=== PATIENT | female | born 1945 | race Caucasian/White ===

== ENCOUNTER → 2016-07-09 | Outpatient (CLI) | payer OTHER ==
[~2016-07-09] MED LIST: ALAVERT10 M1 PO; ASPIRIN81 MG PO; CALCIUM 500 W/V1 TAB PO; HYDROCHLOROTHIA25 MG PO; IBUPROFEN600 MG PO; INDOCIN50 MG PO; MOTRIN800 MG PO; OXYBUTYNIN5 MG PO; PRINIVIL10 MG PO; SYNTHROID,LEVO88 MCG PO; TENORMIN50 MG PO; ZOCOR20 MG PO
[2016-07-09 10:48] LABS: BASO % 0.2 % (0.0-1.0); EOS # 0.2 10*3/uL (0.0-0.4); EOS % 3.3 % (1.0-4.0); HEMATOCRIT 36.8 % (37.0-47.0); HEMOGLOBIN 12.8 g/dl (12.0-16.0); MEAN CORPUSCULAR HGB 31.3 pg (27.0-31.0); MEAN CORPUSCULAR HGB CONC 34.8 g/dl (33.0-37.0); MEAN PLATELET VOLUME 9.3 fl (9.6-12.3); MONO # 0.3 10*3/uL (0.1-1.0); MONO % 5.2 % (3.0-9.0); NEUT # 3.9 10*3/uL (2.3-7.9); NEUT % 73.1 % (47.0-73.0); PLATELET COUNT AUTOMATED 246 10*3/uL (130-400); RED BLOOD COUNT 4.09 10*6/uL (4.10-5.10); RED CELL DISTRI WIDTH 13.3 % (0-14.5); WHITE BLOOD COUNT 5.4 10*3/uL (4.8-10.8)
[2016-07-09 11:17] LABS: ALBUMIN 3.6 gm/dl (3.1-4.5); ALKALINE PHOSPHATASE 100 U/L (45-117); BILIRUBIN, DIRECT 0.1 mg/dL (0.0-0.2); BILIRUBIN, TOTAL 0.6 mg/dl (0.2-1.0); BUN 14 mg/dl (7-24); CARBON DIOXIDE 29 mmol/L (21-32); CHLORIDE 99 mmol/L (98-107); CHOLESTEROL 212 mg/dL (<200); EST GLOM FILT AFRICAN AMERICAN > 60 ml/min; GLUCOSE 91 mg/dL (65-99); HDL CHOLESTEROL 68 mg/dl (40-60); LDL CHOLESTEROL 120 mg/dL (9-159); PHOSPHOROUS 3.3 mg/dL (2.5-4.9); POTASSIUM 3.7 mmol/L (3.5-5.1); SGOT/AST 24 IU/L (3-35); SGPT/ALT 34 U/L (12-78); SODIUM 138 mmol/L (136-145); TOTAL PROTEIN 7.4 gm/dL (6.4-8.2); TRIGLYCERIDES 120 mg/dl (<150); VLDL CHOLESTEROL 24 mg/dL (6-40)
[2016-07-09 11:42] LABS: FOLIC ACID 20.88 ng/mL (>5.38)
== END | disposition home or self-care (01) ==
LOC: LAB 10:29
PROVIDERS: Internal Medicine
DX: I10 Essential (primary) hypertension (principal); E78.2 Mixed hyperlipidemia; J45.32 Mild persistent asthma with status asthmaticus; G47.33 Obstructive sleep apnea (adult) (pediatric)

== ENCOUNTER → 2017-02-19 | Outpatient (CLI) | payer OTHER ==
[2017-02-19 10:49] LABS: BASO % 0.4 % (0.0-1.0); EOS # 0.3 10*3/uL (0.0-0.4); EOS % 5.3 % (1.0-4.0); HEMATOCRIT 36.3 % (37.0-47.0); HEMOGLOBIN 12.1 g/dl (12.0-16.0); LYMPH # 1.1 10*3/uL (1.3-4.4); LYMPH % 22.6 % (27.0-41.0); MEAN CELL VOLUME 91.9 fl (81.0-99.0); MEAN CORPUSCULAR HGB 30.6 pg (27.0-31.0); MEAN CORPUSCULAR HGB CONC 33.3 g/dl (33.0-37.0); MEAN PLATELET VOLUME 9.8 fl (9.6-12.3); MONO # 0.3 10*3/uL (0.1-1.0); MONO % 5.9 % (3.0-9.0); NEUT # 3.2 10*3/uL (2.3-7.9); NEUT % 65.4 % (47.0-73.0); PLATELET COUNT AUTOMATED 222 10*3/uL (130-400); RED BLOOD COUNT 3.95 10*6/uL (4.10-5.10); RED CELL DISTRI WIDTH 13.1 % (0-14.5); WHITE BLOOD COUNT 4.9 10*3/uL (4.8-10.8)
[2017-02-19 11:06] LABS: ALBUMIN 3.6 gm/dl (3.1-4.5); ALKALINE PHOSPHATASE 100 U/L (45-117); BILIRUBIN, DIRECT 0.2 mg/dL (0.0-0.2); BUN 17 mg/dl (7-24); CHLORIDE 102 mmol/L (98-107); CHOLESTEROL 184 mg/dL (<200); CREATININE 0.91 mg/dL (0.55-1.02); HDL CHOLESTEROL 60 mg/dl (40-60); LDL CHOLESTEROL 101 mg/dL (9-159); POTASSIUM 3.7 mmol/L (3.5-5.1); SGOT/AST 21 IU/L (3-35); SGPT/ALT 22 U/L (12-78); SODIUM 139 mmol/L (136-145); THYROXINE (T4) TOTAL 9.3 ug/dl (4.8-13.9); TOTAL PROTEIN 7.5 gm/dL (6.4-8.2); TRIGLYCERIDES 115 mg/dl (<150); URIC ACID 5.7 mg/dL (2.6-6.0); VLDL CHOLESTEROL 23 mg/dL (6-40)
[2017-02-19 11:11] LABS: THYROID STIM HORMONE (HS) 0.937 uIU/ml (0.358-4.75)
== END | disposition home or self-care (01) ==
LOC: LAB 10:28
PROVIDERS: Internal Medicine
DX: I10 Essential (primary) hypertension (principal); M10.9 Gout, unspecified; E03.1 Congenital hypothyroidism without goiter

== ENCOUNTER 2017-03-19 20:22 | Emergency (ER) | payer OTHER ==
[~2017-03-19] VITALS: Ht 160 cm; Wt 77.1 kg
[2017-03-19] MEDS ORDERED: VOLTAREN100 GM T (22:38)
== END 2017-03-19 22:55 | disposition home or self-care (01) ==
LOC: ED 20:22
DX: M25.462 Effusion, left knee (principal); Z88.8 Allergy status to other drugs, medicaments and biological substances; Z79.899 Other long term (current) drug therapy; Z79.82 Long term (current) use of aspirin

== ENCOUNTER → 2017-10-05 | Outpatient (CLI) | payer OTHER ==
[~2017-10-05] MED LIST changes: +VOLTAREN100 GM T
[2017-10-05 14:01] LABS: BASO % 0.8 % (0.0-1.0); EOS # 0.3 10*3/uL (0.0-0.4); EOS % 5.1 % (1.0-4.0); HEMATOCRIT 34.9 % (37.0-47.0); HEMOGLOBIN 11.7 g/dl (12.0-16.0); LYMPH # 1.2 10*3/uL (1.3-4.4); LYMPH % 22.6 % (27.0-41.0); MEAN CELL VOLUME 92.3 fl (81.0-99.0); MEAN CORPUSCULAR HGB CONC 33.5 g/dl (33.0-37.0); MEAN PLATELET VOLUME 10.3 fl (9.6-12.3); MONO # 0.3 10*3/uL (0.1-1.0); MONO % 5.7 % (3.0-9.0); NEUT # 3.5 10*3/uL (2.3-7.9); NEUT % 65.4 % (47.0-73.0); PLATELET COUNT AUTOMATED 209 10*3/uL (130-400); RED BLOOD COUNT 3.78 10*6/uL (4.10-5.10); WHITE BLOOD COUNT 5.3 10*3/uL (4.8-10.8)
[2017-10-05 14:15] LABS: ALBUMIN 3.8 gm/dl (3.1-4.5); ALKALINE PHOSPHATASE 93 U/L (45-117); BILIRUBIN, DIRECT 0.1 mg/dL (0.0-0.2); BUN 18 mg/dl (7-24); CHLORIDE 102 mmol/L (98-107); CREATININE 1.02 mg/dL (0.55-1.02); PHOSPHOROUS 3.4 mg/dL (2.5-4.9); POTASSIUM 4.2 mmol/L (3.5-5.1); SGOT/AST 22 IU/L (3-35); SGPT/ALT 26 U/L (12-78); SODIUM 137 mmol/L (136-145); TOTAL PROTEIN 7.2 gm/dL (6.4-8.2)
== END | disposition home or self-care (01) ==
LOC: LAB 13:26 → MAMMO 14:00
PROVIDERS: Internal Medicine
DX: J44.9 Chronic obstructive pulmonary disease, unspecified (principal); R92.8 Other abnormal and inconclusive findings on diagnostic imaging of breast; M05.79 Rheumatoid arthritis with rheumatoid factor of multiple sites without organ or systems involvement; I10 Essential (primary) hypertension

== ENCOUNTER → 2018-09-23 | Outpatient (CLI) | payer OTHER ==
[2018-09-23 14:27] LABS: BASO % 0.3 % (0.0-1.0); EOS # 0.2 10*3/uL (0.0-0.4); EOS % 2.7 % (1.0-4.0); HEMATOCRIT 33.7 % (37.0-47.0); HEMOGLOBIN 11.4 g/dl (12.0-16.0); LYMPH # 1.2 10*3/uL (1.3-4.4); LYMPH % 20.4 % (27.0-41.0); MEAN CELL VOLUME 93.1 fl (81.0-99.0); MEAN CORPUSCULAR HGB 31.5 pg (27.0-31.0); MEAN CORPUSCULAR HGB CONC 33.8 g/dl (33.0-37.0); MONO # 0.3 10*3/uL (0.1-1.0); MONO % 5.6 % (3.0-9.0); NEUT # 4.2 10*3/uL (2.3-7.9); NEUT % 70.5 % (47.0-73.0); PLATELET COUNT AUTOMATED 232 10*3/uL (130-400); RED BLOOD COUNT 3.62 10*6/uL (4.10-5.10); RED CELL DISTRI WIDTH 12.6 % (0-14.5)
[2018-09-23 15:00] LABS: ALBUMIN 3.7 gm/dl (3.1-4.5); ALKALINE PHOSPHATASE 82 U/L (45-117); BILIRUBIN, DIRECT 0.1 mg/dL (0.0-0.2); BUN 22 mg/dl (7-24); CHLORIDE 99 mmol/L (98-107); CREATININE 1.02 mg/dL (0.55-1.02); PHOSPHOROUS 3.4 mg/dL (2.5-4.9); POTASSIUM 4.2 mmol/L (3.5-5.1); SGOT/AST 23 IU/L (3-35); SGPT/ALT 22 U/L (12-78); SODIUM 134 mmol/L (136-145); TOTAL PROTEIN 6.9 gm/dL (6.4-8.2)
[2018-09-23 15:07] LABS: THYROID STIM HORMONE (HS) 0.748 uIU/ml (0.358-4.75)
== END | disposition home or self-care (01) ==
LOC: LAB 13:59
PROVIDERS: Internal Medicine
DX: I12.9 Hypertensive chronic kidney disease with stage 1 through stage 4 chronic kidney disease, or unspecified chronic kidney disease (principal); N18.2 Chronic kidney disease, stage 2 (mild); E78.2 Mixed hyperlipidemia

== ENCOUNTER → 2019-02-10 | Outpatient (CLI) | payer OTHER ==
[~2019-02-10] MED LIST changes: +Tobrex Ophth S2.5 ML OPH
[2019-02-10 14:28] LABS: BASO % 0.5 % (0.0-1.0); EOS # 0.3 10*3/uL (0.0-0.4); EOS % 4.2 % (1.0-4.0); HEMATOCRIT 35.1 % (37.0-47.0); LYMPH # 1.4 10*3/uL (1.3-4.4); LYMPH % 22.2 % (27.0-41.0); MEAN CELL VOLUME 92.9 fl (81.0-99.0); MEAN CORPUSCULAR HGB 31.7 pg (27.0-31.0); MEAN CORPUSCULAR HGB CONC 34.2 g/dl (33.0-37.0); MEAN PLATELET VOLUME 9.9 fl (9.6-12.3); MONO # 0.4 10*3/uL (0.1-1.0); MONO % 6.1 % (3.0-9.0); NEUT # 4.2 10*3/uL (2.3-7.9); NEUT % 66.7 % (47.0-73.0); PLATELET COUNT AUTOMATED 239 10*3/uL (130-400); RED BLOOD COUNT 3.78 10*6/uL (4.10-5.10); RED CELL DISTRI WIDTH 13.1 % (0-14.5); WHITE BLOOD COUNT 6.2 10*3/uL (4.8-10.8)
[2019-02-10 14:56] LABS: ALBUMIN 3.7 gm/dl (3.1-4.5); ALKALINE PHOSPHATASE 93 U/L (45-117); BILIRUBIN, DIRECT < 0.1 mg/dL (0.0-0.2); BUN 19 mg/dl (7-24); CHLORIDE 97 mmol/L (98-107); CHOLESTEROL 205 mg/dL (<200); CREATININE 0.82 mg/dL (0.55-1.02); HDL CHOLESTEROL 59 mg/dl (40-60); LDL CHOLESTEROL 120 mg/dL (9-159); PHOSPHOROUS 4.3 mg/dL (2.5-4.9); POTASSIUM 4.4 mmol/L (3.5-5.1); SGOT/AST 25 IU/L (3-35); SGPT/ALT 27 U/L (12-78); SODIUM 134 mmol/L (136-145); TOTAL PROTEIN 7.3 gm/dL (6.4-8.2); TRIGLYCERIDES 132 mg/dl (<150); VLDL CHOLESTEROL 26 mg/dL (6-40)
== END | disposition home or self-care (01) ==
LOC: LAB 13:53
PROVIDERS: Internal Medicine
DX: I10 Essential (primary) hypertension (principal); E11.9 Type 2 diabetes mellitus without complications; M05.79 Rheumatoid arthritis with rheumatoid factor of multiple sites without organ or systems involvement; E78.2 Mixed hyperlipidemia

== ENCOUNTER 2019-02-28 15:27 | Emergency (ER) | payer OTHER ==
[~2019-02-28] VITALS: Ht 160 cm; Wt 74.8 kg
[~2019-02-28 15:27] MED LIST changes: -Tobrex Ophth S2.5 ML OPH
[2019-02-28] MEDS ORDERED: Tobrex Ophth S2.5 ML OPH (16:18)
== END 2019-02-28 16:34 | disposition home or self-care (01) ==
LOC: ED 15:27
DX: H10.9 Unspecified conjunctivitis (principal); I10 Essential (primary) hypertension; E78.00 Pure hypercholesterolemia, unspecified; E07.9 Disorder of thyroid, unspecified; Z88.8 Allergy status to other drugs, medicaments and biological substances; Z79.899 Other long term (current) drug therapy

== ENCOUNTER → 2019-03-17 | Outpatient (CLI) | payer OTHER ==
[~2019-03-17] MED LIST changes: +Tobrex Ophth S2.5 ML OPH
[2019-03-17 08:48] LABS: BASO % 0.4 % (0.0-1.0); EOS # 0.2 10*3/uL (0.0-0.4); EOS % 3.9 % (1.0-4.0); HEMOGLOBIN 12.2 g/dl (12.0-16.0); LYMPH # 1.1 10*3/uL (1.3-4.4); LYMPH % 19.4 % (27.0-41.0); MEAN CELL VOLUME 92.7 fl (81.0-99.0); MEAN CORPUSCULAR HGB 30.6 pg (27.0-31.0); MEAN PLATELET VOLUME 10.1 fl (9.6-12.3); MONO # 0.4 10*3/uL (0.1-1.0); MONO % 6.7 % (3.0-9.0); NEUT # 3.8 10*3/uL (2.3-7.9); NEUT % 69.2 % (47.0-73.0); PLATELET COUNT AUTOMATED 269 10*3/uL (130-400); RED BLOOD COUNT 3.99 10*6/uL (4.10-5.10); RED CELL DISTRI WIDTH 13.2 % (0-14.5); WHITE BLOOD COUNT 5.4 10*3/uL (4.8-10.8)
== END | disposition home or self-care (01) ==
LOC: LAB 07:55
PROVIDERS: Ophthalmology
DX: H47.012 Ischemic optic neuropathy, left eye (principal)

== ENCOUNTER → 2019-04-17 | Outpatient (CLI) | payer OTHER ==
[2019-04-20 00:05] LABS: TB1 Ag VALUE 0.03 IU/mL (.)
== END | disposition home or self-care (01) ==
LOC: LAB 09:06
PROVIDERS: Internal Medicine Endocrinology, Diabetes & Metabolism
DX: H47.20 Unspecified optic atrophy (principal)

== ENCOUNTER → 2019-07-18 | Outpatient (CLI) | payer OTHER ==
[2019-07-18 09:30] LABS: BASO % 0.3 % (0.0-1.0); EOS # 0.1 10*3/uL (0.0-0.4); EOS % 0.9 % (1.0-4.0); HEMATOCRIT 33.3 % (37.0-47.0); HEMOGLOBIN 10.6 g/dl (12.0-16.0); LYMPH % 22.6 % (27.0-41.0); MEAN CELL VOLUME 100.6 fl (81.0-99.0); MEAN CORPUSCULAR HGB CONC 31.8 g/dl (33.0-37.0); MEAN PLATELET VOLUME 9.1 fl (9.6-12.3); MONO # 0.6 10*3/uL (0.1-1.0); MONO % 7.2 % (3.0-9.0); NEUT # 5.9 10*3/uL (2.3-7.9); NEUT % 67.4 % (47.0-73.0); PLATELET COUNT AUTOMATED 302 10*3/uL (130-400); RED BLOOD COUNT 3.31 10*6/uL (4.10-5.10); RED CELL DISTRI WIDTH 17.7 % (0-14.5); WHITE BLOOD COUNT 8.7 10*3/uL (4.8-10.8)
[2019-07-18 09:51] LABS: ALBUMIN 3.2 gm/dl (3.1-4.5); ALKALINE PHOSPHATASE 66 U/L (45-117); BILIRUBIN, DIRECT 0.1 mg/dL (0.0-0.2); BUN 21 mg/dl (7-24); CHLORIDE 102 mmol/L (98-107); CREATININE 0.93 mg/dL (0.55-1.02); PHOSPHOROUS 2.8 mg/dL (2.5-4.9); POTASSIUM 3.8 mmol/L (3.5-5.1); SGOT/AST 12 IU/L (3-35); SGPT/ALT 24 U/L (12-78); SODIUM 137 mmol/L (136-145)
[2019-07-20 14:06] LABS: % CD19 <1 % (5-21); % CD3 91 % (62-89); % CD4 51 % (35-68); % CD45RA 13 % (19-62); % CD45RO 87 % (38-81); % CD8 39 % (10-46); ABSOLUTE CD19 <1 cells/uL (74-510); ABSOLUTE CD3 1842 cells/uL (660-2200); ABSOLUTE CD4 1021 cells/uL (490-1600); ABSOLUTE CD45RA 136 cells/uL (260-1000); ABSOLUTE CD45RO 905 cells/uL (490-1200); ABSOLUTE CD8 781 cells/uL (150-1050); ABSOLUTE NATURAL KILLER CELLS 166 cells/uL (74-620); CD4:CD8 RATIO 1.31 ratio (0.80-6.17); NATURAL KILLER CELLS % 8 % (5-28)
[2019-07-21 00:04] LABS: TB1 Ag VALUE 0.05 IU/mL (.)
== END | disposition home or self-care (01) ==
LOC: LAB 07:57
PROVIDERS: Internal Medicine
DX: G36.0 Neuromyelitis optica [Devic] (principal); E78.2 Mixed hyperlipidemia; M05.79 Rheumatoid arthritis with rheumatoid factor of multiple sites without organ or systems involvement; N18.3 Chronic kidney disease, stage 3 (moderate); Z79.899 Other long term (current) drug therapy

== ENCOUNTER → 2019-10-23 | Outpatient (CLI) | payer OTHER ==
[2019-10-23 13:26] LABS: BASO % 0.3 % (0.0-1.0); EOS # 0.2 10*3/uL (0.0-0.4); EOS % 2.2 % (1.0-4.0); HEMATOCRIT 35.3 % (37.0-47.0); LYMPH # 1.2 10*3/uL (1.3-4.4); LYMPH % 15.8 % (27.0-41.0); MEAN CELL VOLUME 90.1 fl (81.0-99.0); MEAN CORPUSCULAR HGB 29.1 pg (27.0-31.0); MEAN CORPUSCULAR HGB CONC 32.3 g/dl (33.0-37.0); MEAN PLATELET VOLUME 9.7 fl (9.6-12.3); MONO # 0.5 10*3/uL (0.1-1.0); MONO % 5.9 % (3.0-9.0); NEUT # 5.8 10*3/uL (2.3-7.9); NEUT % 75.5 % (47.0-73.0); PLATELET COUNT AUTOMATED 292 10*3/uL (130-400); RED BLOOD COUNT 3.92 10*6/uL (4.10-5.10); RED CELL DISTRI WIDTH 15.4 % (0-14.5); WHITE BLOOD COUNT 7.7 10*3/uL (4.8-10.8)
[2019-10-23 13:53] LABS: ALBUMIN 3.8 gm/dl (3.1-4.5); CREATININE 1.11 mg/dL (0.55-1.02)
[2019-10-25 17:10] LABS: % CD19 0 % (5-21); % CD3 83 % (62-89); % CD4 49 % (35-68); % CD45RA 14 % (19-62); % CD45RO 86 % (38-81); % CD8 32 % (10-46); ABSOLUTE CD19 0 cells/uL (74-510); ABSOLUTE CD3 979 cells/uL (660-2200); ABSOLUTE CD4 575 cells/uL (490-1600); ABSOLUTE CD45RA 87 cells/uL (260-1000); ABSOLUTE CD45RO 521 cells/uL (490-1200); ABSOLUTE CD8 379 cells/uL (150-1050); ABSOLUTE NATURAL KILLER CELLS 198 cells/uL (74-620); CD4:CD8 RATIO 1.53 ratio (0.80-6.17); NATURAL KILLER CELLS % 17 % (5-28)
== END | disposition home or self-care (01) ==
LOC: LAB 13:00
PROVIDERS: Psychiatry & Neurology Neurology
DX: G36.0 Neuromyelitis optica [Devic] (principal); D72.819 Decreased white blood cell count, unspecified; Z79.899 Other long term (current) drug therapy

== ENCOUNTER → 2020-01-22 | Outpatient (CLI) | payer OTHER ==
[2020-01-22 14:04] LABS: BASO % 0.2 % (0.0-1.0); EOS # 0.2 10*3/uL (0.0-0.4); EOS % 1.9 % (1.0-4.0); HEMATOCRIT 35.9 % (37.0-47.0); LYMPH # 1.1 10*3/uL (1.3-4.4); LYMPH % 13.3 % (27.0-41.0); MEAN CORPUSCULAR HGB 31.1 pg (27.0-31.0); MEAN CORPUSCULAR HGB CONC 33.4 g/dl (33.0-37.0); MEAN PLATELET VOLUME 10.1 fl (9.6-12.3); MONO # 0.6 10*3/uL (0.1-1.0); MONO % 6.6 % (3.0-9.0); NEUT # 6.6 10*3/uL (2.3-7.9); NEUT % 77.6 % (47.0-73.0); PLATELET COUNT AUTOMATED 315 10*3/uL (130-400); RED BLOOD COUNT 3.86 10*6/uL (4.10-5.10); RED CELL DISTRI WIDTH 13.1 % (0-14.5); WHITE BLOOD COUNT 8.5 10*3/uL (4.8-10.8)
[2020-01-22 14:33] LABS: ALBUMIN 3.8 gm/dl (3.1-4.5); CREATININE 1.14 mg/dL (0.55-1.02); POTASSIUM 3.8 mmol/L (3.5-5.1)
[2020-01-24 19:10] LABS: % CD19 0 % (5-21); % CD3 74 % (62-89); % CD4 44 % (35-68); % CD45RA 20 % (19-62); % CD45RO 80 % (38-81); % CD8 29 % (10-46); ABSOLUTE CD19 0 cells/uL (74-510); ABSOLUTE CD3 862 cells/uL (660-2200); ABSOLUTE CD4 507 cells/uL (490-1600); ABSOLUTE CD45RA 108 cells/uL (260-1000); ABSOLUTE CD45RO 443 cells/uL (490-1200); ABSOLUTE CD8 332 cells/uL (150-1050); ABSOLUTE NATURAL KILLER CELLS 280 cells/uL (74-620); CD4:CD8 RATIO 1.52 ratio (0.80-6.17); NATURAL KILLER CELLS % 24 % (5-28)
== END | disposition home or self-care (01) ==
LOC: LAB 01-20 10:16
PROVIDERS: ATTEND Psychiatry & Neurology Neurology
DX: G36.0 Neuromyelitis optica [Devic] (principal); D72.819 Decreased white blood cell count, unspecified; Z79.899 Other long term (current) drug therapy

== ENCOUNTER → 2020-03-25 | Outpatient (CLI) | payer OTHER | END | disposition home or self-care (01) | LOC: COVID19 17:28 | PROVIDERS: ATTEND Hospitalist | DX: Z20.828 Contact with and (suspected) exposure to other viral communicable diseases (principal) ==

== ENCOUNTER → 2020-04-29 | Outpatient (CLI) | payer OTHER ==
[2020-04-29 11:08] LABS: BASO % 0.3 % (0.0-1.0); EOS # 0.2 10*3/uL (0.0-0.4); EOS % 3.5 % (1.0-4.0); HEMATOCRIT 35.1 % (37.0-47.0); MEAN CELL VOLUME 91.6 fl (81.0-99.0); MEAN CORPUSCULAR HGB 30.5 pg (27.0-31.0); MEAN CORPUSCULAR HGB CONC 33.3 g/dl (33.0-37.0); MEAN PLATELET VOLUME 9.6 fl (9.6-12.3); MONO # 0.5 10*3/uL (0.1-1.0); MONO % 7.7 % (3.0-9.0); NEUT # 4.7 10*3/uL (2.3-7.9); NEUT % 73.2 % (47.0-73.0); PLATELET COUNT AUTOMATED 282 10*3/uL (130-400); RED BLOOD COUNT 3.83 10*6/uL (4.10-5.10); RED CELL DISTRI WIDTH 13.2 % (0-14.5); WHITE BLOOD COUNT 6.4 10*3/uL (4.8-10.8)
[2020-04-29 11:44] LABS: ALBUMIN 3.6 gm/dl (3.1-4.5); ALKALINE PHOSPHATASE 134 U/L (45-117); BUN 25 mg/dl (7-24); CHLORIDE 101 mmol/L (98-107); CREATININE 1.05 mg/dL (0.55-1.02); POTASSIUM 3.9 mmol/L (3.5-5.1); SGOT/AST 33 IU/L (3-35); SGPT/ALT 47 U/L (12-78); SODIUM 136 mmol/L (136-145); TOTAL PROTEIN 6.7 gm/dL (6.4-8.2)
[2020-05-02 16:09] LABS: % CD19 0 % (5-21); % CD3 78 % (62-89); % CD4 50 % (35-68); % CD45RA 20 % (19-62); % CD45RO 79 % (38-81); % CD8 26 % (10-46); ABSOLUTE CD19 0 cells/uL (74-510); ABSOLUTE CD3 733 cells/uL (660-2200); ABSOLUTE CD4 468 cells/uL (490-1600); ABSOLUTE CD45RA 96 cells/uL (260-1000); ABSOLUTE CD45RO 379 cells/uL (490-1200); ABSOLUTE CD8 244 cells/uL (150-1050); ABSOLUTE NATURAL KILLER CELLS 183 cells/uL (74-620); CD4:CD8 RATIO 1.92 ratio (0.80-6.17); NATURAL KILLER CELLS % 19 % (5-28)
== END | disposition home or self-care (01) ==
LOC: LAB 10:51
PROVIDERS: ATTEND Psychiatry & Neurology Neurology
DX: D72.819 Decreased white blood cell count, unspecified (principal); G36.0 Neuromyelitis optica [Devic]; Z79.899 Other long term (current) drug therapy

== ENCOUNTER → 2020-07-15 | Outpatient (CLI) | payer MEDICARE ==
[2020-07-15 10:24] LABS: BASO % 0.5 % (0.0-1.0); EOS # 0.3 10*3/uL (0.0-0.4); EOS % 4.6 % (1.0-4.0); HEMATOCRIT 37.4 % (37.0-47.0); LYMPH # 0.9 10*3/uL (1.3-4.4); LYMPH % 15.8 % (27.0-41.0); MEAN CELL VOLUME 90.8 fl (81.0-99.0); MEAN CORPUSCULAR HGB 29.6 pg (27.0-31.0); MEAN CORPUSCULAR HGB CONC 32.6 g/dl (33.0-37.0); MEAN PLATELET VOLUME 9.9 fl (9.6-12.3); MONO # 0.6 10*3/uL (0.1-1.0); MONO % 9.7 % (3.0-9.0); NEUT # 4.1 10*3/uL (2.3-7.9); NEUT % 68.9 % (47.0-73.0); PLATELET COUNT AUTOMATED 261 10*3/uL (130-400); RED BLOOD COUNT 4.12 10*6/uL (4.10-5.10); RED CELL DISTRI WIDTH 13.3 % (0-14.5); WHITE BLOOD COUNT 5.9 10*3/uL (4.8-10.8)
[2020-07-15 10:51] LABS: ALBUMIN 3.5 gm/dl (3.1-4.5); BUN 28 mg/dl (7-24); CHLORIDE 101 mmol/L (98-107); CREATININE 0.88 mg/dL (0.55-1.02); SGOT/AST 29 IU/L (3-35); SGPT/ALT 40 U/L (12-78); SODIUM 136 mmol/L (136-145)
[2020-07-15 10:53] LABS: ALKALINE PHOSPHATASE 101 U/L (45-117); TOTAL PROTEIN 6.7 gm/dL (6.4-8.2)
[2020-07-18 10:07] LABS: % CD19 0 % (5-21); % CD3 79 % (62-89); % CD4 51 % (35-68); % CD45RA 20 % (19-62); % CD45RO 79 % (38-81); % CD8 26 % (10-46); ABSOLUTE CD19 0 cells/uL (74-510); ABSOLUTE CD3 666 cells/uL (660-2200); ABSOLUTE CD4 432 cells/uL (490-1600); ABSOLUTE CD45RA 87 cells/uL (260-1000); ABSOLUTE CD45RO 337 cells/uL (490-1200); ABSOLUTE CD8 217 cells/uL (150-1050); ABSOLUTE NATURAL KILLER CELLS 167 cells/uL (74-620); CD4:CD8 RATIO 1.96 ratio (0.80-6.17); NATURAL KILLER CELLS % 20 % (5-28)
== END | disposition home or self-care (01) ==
LOC: LAB 09:47
PROVIDERS: ATTEND Specialist
DX: G36.0 Neuromyelitis optica [Devic] (principal); D72.819 Decreased white blood cell count, unspecified; Z79.899 Other long term (current) drug therapy

== ENCOUNTER → 2020-10-14 | Outpatient (CLI) | payer OTHER ==
[2020-10-14 12:20] LABS: BASO % 0.3 % (0.0-1.0); EOS # 0.3 10*3/uL (0.0-0.4); EOS % 3.8 % (1.0-4.0); HEMATOCRIT 37.9 % (37.0-47.0); LYMPH # 1.2 10*3/uL (1.3-4.4); LYMPH % 17.3 % (27.0-41.0); MEAN CELL VOLUME 90.9 fl (81.0-99.0); MEAN PLATELET VOLUME 10.3 fl (9.6-12.3); MONO # 0.4 10*3/uL (0.1-1.0); MONO % 6.5 % (3.0-9.0); NEUT # 4.8 10*3/uL (2.3-7.9); NEUT % 71.8 % (47.0-73.0); PLATELET COUNT AUTOMATED 258 10*3/uL (130-400); RED BLOOD COUNT 4.17 10*6/uL (4.10-5.10); RED CELL DISTRI WIDTH 14.1 % (0-14.5); WHITE BLOOD COUNT 6.7 10*3/uL (4.8-10.8)
[2020-10-14 12:51] LABS: ALBUMIN 3.8 gm/dl (3.1-4.5); BILIRUBIN, DIRECT 0.1 mg/dL (0.0-0.2); BUN 19 mg/dl (7-24); CHLORIDE 100 mmol/L (98-107); CHOLESTEROL 202 mg/dL (<200); CREATININE 0.81 mg/dL (0.55-1.02); LDL CHOLESTEROL 127 mg/dL (9-159); POTASSIUM 3.8 mmol/L (3.5-5.1); SGOT/AST 26 IU/L (3-35); SGPT/ALT 34 U/L (12-78); SODIUM 137 mmol/L (136-145); TOTAL PROTEIN 6.6 gm/dL (6.4-8.2); TRIGLYCERIDES 106 mg/dl (<150)
[2020-10-14 12:52] LABS: ALKALINE PHOSPHATASE 88 U/L (45-117)
[2020-10-17 10:07] LABS: % CD19 0 % (5-21); % CD3 76 % (62-89); % CD4 48 % (35-68); % CD45RA 16 % (19-62); % CD45RO 84 % (38-81); % CD8 27 % (10-46); ABSOLUTE CD19 0 cells/uL (74-510); ABSOLUTE CD3 845 cells/uL (660-2200); ABSOLUTE CD4 531 cells/uL (490-1600); ABSOLUTE CD45RA 76 cells/uL (260-1000); ABSOLUTE CD45RO 385 cells/uL (490-1200); ABSOLUTE CD8 299 cells/uL (150-1050); ABSOLUTE NATURAL KILLER CELLS 244 cells/uL (74-620); CD4:CD8 RATIO 1.78 ratio (0.80-6.17); NATURAL KILLER CELLS % 22 % (5-28)
== END | disposition home or self-care (01) ==
LOC: LAB 10-11 12:43
PROVIDERS: Psychiatry & Neurology Neurology; ATTEND Internal Medicine
DX: I12.9 Hypertensive chronic kidney disease with stage 1 through stage 4 chronic kidney disease, or unspecified chronic kidney disease (principal); E11.22 Type 2 diabetes mellitus with diabetic chronic kidney disease; N18.2 Chronic kidney disease, stage 2 (mild); G36.0 Neuromyelitis optica [Devic]; D72.819 Decreased white blood cell count, unspecified; E78.2 Mixed hyperlipidemia; Z79.899 Other long term (current) drug therapy

== ENCOUNTER → 2021-01-17 | Outpatient (CLI) | payer OTHER | END | disposition home or self-care (01) | LOC: COVID19 16:07 | PROVIDERS: ATTEND Internal Medicine | DX: Z11.52 Encounter for screening for COVID-19 (principal) ==

== ENCOUNTER → 2021-02-10 | Outpatient (CLI) | payer OTHER ==
[2021-02-10 13:15] LABS: HEMATOCRIT 39.2 % (37.0-47.0); MEAN CELL VOLUME 93.3 fl (81.0-99.0); MEAN CORPUSCULAR HGB CONC 33.2 g/dl (33.0-37.0); MEAN PLATELET VOLUME 9.7 fl (9.6-12.3); PLATELET COUNT AUTOMATED 294 10*3/uL (130-400); RED CELL DISTRI WIDTH 13.2 % (0-14.5); WHITE BLOOD COUNT 6.9 10*3/uL (4.8-10.8)
[2021-02-10 13:33] LABS: ALBUMIN 3.6 gm/dl (3.1-4.5); ALKALINE PHOSPHATASE 93 U/L (45-117); BUN 25 mg/dl (7-24); CHLORIDE 104 mmol/L (98-107); CREATININE 0.89 mg/dL (0.55-1.02); OVALOCYTES FEW; PLATELET SUFFICIENCY NORMAL (NORMAL); POTASSIUM 4.2 mmol/L (3.5-5.1); SGOT/AST 29 IU/L (3-35); SGPT/ALT 37 U/L (12-78); SODIUM 138 mmol/L (136-145); TOTAL CELLS COUNTED 100 #CELLS; TOTAL PROTEIN 6.9 gm/dL (6.4-8.2)
[2021-02-12 19:06] LABS: % CD19 0 % (5-21); % CD3 69 % (62-89); % CD4 41 % (35-68); % CD45RA 18 % (19-62); % CD45RO 81 % (38-81); % CD8 26 % (10-46); ABSOLUTE CD19 1 cells/uL (74-510); ABSOLUTE CD3 868 cells/uL (660-2200); ABSOLUTE CD4 516 cells/uL (490-1600); ABSOLUTE CD45RA 96 cells/uL (260-1000); ABSOLUTE CD45RO 428 cells/uL (490-1200); ABSOLUTE CD8 333 cells/uL (150-1050); ABSOLUTE NATURAL KILLER CELLS 353 cells/uL (74-620); CD4:CD8 RATIO 1.58 ratio (0.80-6.17); NATURAL KILLER CELLS % 28 % (5-28)
== END | disposition home or self-care (01) ==
LOC: LAB 13:01
PROVIDERS: ATTEND Psychiatry & Neurology Neurology
DX: D72.819 Decreased white blood cell count, unspecified (principal); Z79.899 Other long term (current) drug therapy

== ENCOUNTER → 2021-08-06 | Outpatient (CLI) | payer OTHER ==
[2021-08-06 10:07] LABS: BASO % 0.5 % (0.0-1.0); EOS # 0.3 10*3/uL (0.0-0.4); EOS % 4.4 % (1.0-4.0); HEMATOCRIT 39.5 % (37.0-47.0); LYMPH # 1.1 10*3/uL (1.3-4.4); LYMPH % 18.5 % (27.0-41.0); MEAN CELL VOLUME 91.2 fl (81.0-99.0); MEAN CORPUSCULAR HGB CONC 32.9 g/dl (33.0-37.0); MEAN PLATELET VOLUME 9.9 fl (9.6-12.3); MONO # 0.5 10*3/uL (0.1-1.0); MONO % 8.5 % (3.0-9.0); NEUT # 3.9 10*3/uL (2.3-7.9); NEUT % 67.9 % (47.0-73.0); PLATELET COUNT AUTOMATED 252 10*3/uL (130-400); RED BLOOD COUNT 4.33 10*6/uL (4.10-5.10); RED CELL DISTRI WIDTH 13.2 % (0-14.5); WHITE BLOOD COUNT 5.7 10*3/uL (4.8-10.8)
[2021-08-06 10:35] LABS: ALKALINE PHOSPHATASE 91 U/L (45-117); BUN 29 mg/dl (7-24); CHLORIDE 103 mmol/L (98-107); CREATININE 0.91 mg/dL (0.55-1.02); POTASSIUM 3.9 mmol/L (3.5-5.1); SGOT/AST 26 IU/L (3-35); SGPT/ALT 36 U/L (12-78); SODIUM 137 mmol/L (136-145)
[2021-08-09 20:07] LABS: % CD19 0 % (5-21); % CD3 82 % (62-89); % CD4 54 % (35-68); % CD45RA 20 % (19-62); % CD45RO 80 % (38-81); % CD8 26 % (10-46); ABSOLUTE CD19 1 cells/uL (74-510); ABSOLUTE CD3 986 cells/uL (660-2200); ABSOLUTE CD4 647 cells/uL (490-1600); ABSOLUTE CD45RA 133 cells/uL (260-1000); ABSOLUTE CD45RO 541 cells/uL (490-1200); ABSOLUTE CD8 317 cells/uL (150-1050); ABSOLUTE NATURAL KILLER CELLS 205 cells/uL (74-620); CD4:CD8 RATIO 2.08 ratio (0.80-6.17); NATURAL KILLER CELLS % 17 % (5-28)
== END | disposition home or self-care (01) ==
LOC: LAB 09:45
PROVIDERS: ATTEND Psychiatry & Neurology Neurology
DX: G36.0 Neuromyelitis optica [Devic] (principal); D72.819 Decreased white blood cell count, unspecified; Z79.899 Other long term (current) drug therapy

== ENCOUNTER → 2022-02-17 | Outpatient (CLI) | payer MEDICARE ==
[2022-02-17 13:07] LABS: BASO % 0.4 % (0.0-1.0); EOS # 0.2 10*3/uL (0.0-0.4); HEMATOCRIT 38.1 % (37.0-47.0); LYMPH # 1.1 10*3/uL (1.3-4.4); LYMPH % 19.8 % (27.0-41.0); MEAN CELL VOLUME 91.6 fl (81.0-99.0); MEAN CORPUSCULAR HGB 30.8 pg (27.0-31.0); MEAN CORPUSCULAR HGB CONC 33.6 g/dl (33.0-37.0); MEAN PLATELET VOLUME 10.1 fl (9.6-12.3); MONO # 0.4 10*3/uL (0.1-1.0); MONO % 7.2 % (3.0-9.0); NEUT # 3.7 10*3/uL (2.3-7.9); NEUT % 69.4 % (47.0-73.0); PLATELET COUNT AUTOMATED 255 10*3/uL (130-400); RED BLOOD COUNT 4.16 10*6/uL (4.10-5.10); RED CELL DISTRI WIDTH 13.3 % (0-14.5); WHITE BLOOD COUNT 5.3 10*3/uL (4.8-10.8)
[2022-02-17 13:27] LABS: ALKALINE PHOSPHATASE 97 U/L (45-117); BUN 24 mg/dl (7-24); CHLORIDE 103 mmol/L (98-107); CREATININE 0.91 mg/dL (0.55-1.02); POTASSIUM 4.2 mmol/L (3.5-5.1); SGOT/AST 27 IU/L (3-35); SGPT/ALT 37 U/L (12-78); SODIUM 138 mmol/L (136-145); TOTAL PROTEIN 6.8 gm/dL (6.4-8.2)
[2022-02-20 10:07] LABS: % CD19 0 % (5-21); % CD3 73 % (62-89); % CD4 47 % (35-68); % CD45RA 20 % (19-62); % CD45RO 80 % (38-81); % CD8 24 % (10-46); ABSOLUTE CD19 0 cells/uL (74-510); ABSOLUTE CD3 817 cells/uL (660-2200); ABSOLUTE CD4 534 cells/uL (490-1600); ABSOLUTE CD45RA 102 cells/uL (260-1000); ABSOLUTE CD45RO 395 cells/uL (490-1200); ABSOLUTE CD8 273 cells/uL (150-1050); ABSOLUTE NATURAL KILLER CELLS 287 cells/uL (74-620); CD4:CD8 RATIO 1.96 ratio (0.80-6.17); NATURAL KILLER CELLS % 25 % (5-28)
== END | disposition home or self-care (01) ==
LOC: LAB 02-13 16:58
PROVIDERS: ATTEND Psychiatry & Neurology Neurology
DX: D84.821 Immunodeficiency due to drugs (principal); Z79.899 Other long term (current) drug therapy; G36.0 Neuromyelitis optica [Devic]

== ENCOUNTER → 2022-08-24 | Outpatient (CLI) | payer OTHER ==
[2022-08-24 14:32] LABS: BASO % 0.3 % (0.0-1.0); EOS # 0.2 10*3/uL (0.0-0.4); EOS % 2.6 % (1.0-4.0); HEMATOCRIT 37.3 % (37.0-47.0); LYMPH # 1.5 10*3/uL (1.3-4.4); LYMPH % 23.2 % (27.0-41.0); MEAN CELL VOLUME 91.6 fl (81.0-99.0); MEAN CORPUSCULAR HGB 31.4 pg (27.0-31.0); MEAN CORPUSCULAR HGB CONC 34.3 g/dl (33.0-37.0); MEAN PLATELET VOLUME 9.7 fl (9.6-12.3); MONO # 0.4 10*3/uL (0.1-1.0); MONO % 6.5 % (3.0-9.0); NEUT # 4.3 10*3/uL (2.3-7.9); NEUT % 67.1 % (47.0-73.0); PLATELET COUNT AUTOMATED 259 10*3/uL (130-400); RED BLOOD COUNT 4.07 10*6/uL (4.10-5.10); RED CELL DISTRI WIDTH 13.2 % (0-14.5); WHITE BLOOD COUNT 6.5 10*3/uL (4.8-10.8)
[2022-08-24 15:04] LABS: ALKALINE PHOSPHATASE 95 U/L (46-116); BUN 23 mg/dl (9-23); BUN 24 mg/dl (9-23); CHLORIDE 102 mmol/L (98-107); CHLORIDE 103 mmol/L (98-107); CHOLESTEROL 223 mg/dL (<200); LDL CHOLESTEROL 148 mg/dL (9-159); SGPT/ALT 38 U/L (10-49); TOTAL PROTEIN 6.8 gm/dL (6.0-8.0); TRIGLYCERIDES 119 mg/dl (<150)
[2022-08-26 21:06] LABS: % CD19 0 % (5-21); % CD3 72 % (62-89); % CD4 51 % (35-68); % CD45RA 23 % (19-62); % CD45RO 76 % (38-81); % CD8 21 % (10-46); ABSOLUTE CD19 0 cells/uL (74-510); ABSOLUTE CD3 1070 cells/uL (660-2200); ABSOLUTE CD4 749 cells/uL (490-1600); ABSOLUTE CD45RA 177 cells/uL (260-1000); ABSOLUTE CD45RO 588 cells/uL (490-1200); ABSOLUTE CD8 316 cells/uL (150-1050); ABSOLUTE NATURAL KILLER CELLS 382 cells/uL (74-620); CD4:CD8 RATIO 2.43 ratio (0.80-6.17); NATURAL KILLER CELLS % 26 % (5-28)
== END | disposition home or self-care (01) ==
LOC: LAB 13:53
PROVIDERS: Internal Medicine; Psychiatry & Neurology Neurology
DX: G36.0 Neuromyelitis optica [Devic] (principal); D84.821 Immunodeficiency due to drugs; Z79.899 Other long term (current) drug therapy; Z79.60 Long term (current) use of unspecified immunomodulators and immunosuppressants

== ENCOUNTER → 2022-10-05 | Outpatient (CLI) | payer OTHER | END | disposition home or self-care (01) | LOC: LAB 13:36 | PROVIDERS: ATTEND Urology | DX: N30.00 Acute cystitis without hematuria (principal) ==

== ENCOUNTER → 2023-05-20 | Outpatient (CLI) | payer OTHER ==
[2023-05-20 18:05] LABS: BASO % 0.2 % (0.0-1.0); EOS # 0.5 10*3/uL (0.0-0.4); EOS % 5.5 % (1.0-4.0); HEMATOCRIT 35.5 % (37.0-47.0); LYMPH # 1.4 10*3/uL (1.3-4.4); LYMPH % 15.4 % (27.0-41.0); MEAN CELL VOLUME 95.9 fl (81.0-99.0); MEAN CORPUSCULAR HGB 32.4 pg (27.0-31.0); MEAN CORPUSCULAR HGB CONC 33.8 g/dl (33.0-37.0); MEAN PLATELET VOLUME 9.9 fl (9.6-12.3); MONO # 0.4 10*3/uL (0.1-1.0); MONO % 4.7 % (3.0-9.0); NEUT # 6.8 10*3/uL (2.3-7.9); NEUT % 73.9 % (47.0-73.0); PLATELET COUNT AUTOMATED 241 10*3/uL (130-400); RED CELL DISTRI WIDTH 12.9 % (0-14.5); WHITE BLOOD COUNT 9.3 10*3/uL (4.8-10.8)
[2023-05-20 18:23] LABS: ALKALINE PHOSPHATASE 95 U/L (46-116); BUN 17 mg/dl (9-23); CHLORIDE 110 mmol/L (98-107); POTASSIUM 4.2 mmol/L (3.4-5.1); SGPT/ALT 28 U/L (5-49); TOTAL PROTEIN 6.3 gm/dL (6.0-8.0)
[2023-05-23 11:06] LABS: % CD19 0 % (5-21); % CD3 75 % (62-89); % CD4 56 % (35-68); % CD45RA 21 % (19-62); % CD45RO 79 % (38-81); % CD8 17 % (10-46); ABSOLUTE CD19 3 cells/uL (74-510); ABSOLUTE CD3 1074 cells/uL (660-2200); ABSOLUTE CD4 810 cells/uL (490-1600); ABSOLUTE CD45RA 161 cells/uL (260-1000); ABSOLUTE CD45RO 604 cells/uL (490-1200); ABSOLUTE CD8 242 cells/uL (150-1050); ABSOLUTE NATURAL KILLER CELLS 318 cells/uL (74-620); CD4:CD8 RATIO 3.29 ratio (0.80-6.17); NATURAL KILLER CELLS % 22 % (5-28)
== END | disposition home or self-care (01) ==
LOC: LAB 17:28
PROVIDERS: ATTEND Psychiatry & Neurology Neurology
DX: G36.0 Neuromyelitis optica [Devic] (principal); E50.9 Vitamin A deficiency, unspecified; D84.821 Immunodeficiency due to drugs; Z79.899 Other long term (current) drug therapy; E55.9 Vitamin D deficiency, unspecified

== ENCOUNTER → 2023-07-09 | Outpatient (CLI) | payer OTHER | END | disposition home or self-care (01) | LOC: LAB 16:55 | PROVIDERS: ATTEND Internal Medicine | DX: R30.0 Dysuria (principal) ==

== ENCOUNTER 2024-04-28 01:17 | Inpatient (IN) | payer MEDICARE ==
[2024-04-28] VITALS (7 sets, daily range): BP systolic 113–165; BP diastolic 43–74
[~2024-04-28] VITALS: Ht 157.4 cm; Wt 68.5 kg
[~2024-04-28 01:17] MED LIST changes: +HYDROCHLOROTH12.5 M3 PO; -HYDROCHLOROTHIA25 MG PO
[2024-04-28] MEDS ORDERED: SODIUM CHLORIDE 0.9% 500 ML IV ONE (01:55)
[2024-04-28] MEDS ORDERED: Meclizine Hydrochloride 25 MG TAB PO ONE (01:55)
[2024-04-28 02:03] LABS: BASO % 0.3 % (0.0-1.0); EOS # 0.1 10*3/uL (0.0-0.4); EOS % 1.2 % (1.0-4.0); HEMATOCRIT 31.4 % (37.0-47.0); MEAN CELL VOLUME 93.5 fl (81.0-99.0); MEAN CORPUSCULAR HGB 31.8 pg (27.0-31.0); MEAN CORPUSCULAR HGB CONC 34.1 g/dl (33.0-37.0); MEAN PLATELET VOLUME 9.7 fl (9.6-12.3); MONO # 0.6 10*3/uL (0.1-1.0); MONO % 6.3 % (3.0-9.0); NEUT # 6.9 10*3/uL (2.3-7.9); NEUT % 79.5 % (47.0-73.0); PLATELET COUNT AUTOMATED 226 10*3/uL (130-400); RED BLOOD COUNT 3.36 10*6/uL (4.10-5.10); RED CELL DISTRI WIDTH 13.7 % (0-14.5); WHITE BLOOD COUNT 8.7 10*3/uL (4.8-10.8)
[2024-04-28 02:22] LABS: BUN 18 mg/dl (9-23); CHLORIDE 100 mmol/L (98-107); POTASSIUM 3.5 mmol/L (3.4-5.1)
[2024-04-28 02:44] LABS: BILIRUBIN Negative (Negative); BLOOD Negative (Negative); CLARITY Clear (Clear); COLOR Yellow (Yellow); GLUCOSE Negative (Negative); KETONE 1+ (Negative); LEUKO ESTERASE 2+ (Negative); NITRITE Negative (Negative); PH 7.5 (4.5-8.0); SPECIFIC GRAVITY <= 1.005 (1.001-1.030)
[2024-04-28 03:03] LABS: EPITHELIAL CELLS 0-2; WBC 41-50 wbc/hpf (0-5)
[2024-04-28] MEDS ORDERED: Magnesium Hydroxide 30 ML UDC PO PRN (04:25)
[2024-04-28] MEDS ORDERED: BISACODYL 10 MG SUPP R PRN (04:25)
[2024-04-28] MEDS ORDERED: ACETAMINOPHEN 325 MG TAB PO PRN (04:25)
[2024-04-28] MEDS ORDERED: ACETAMINOPHEN 650 MG SUPP R PRN (04:25)
[2024-04-28] MEDS ORDERED: Ondansetron Hydrochloride 4 MG/2 ML VIAL IV PRN (04:25)
[2024-04-28] MEDS ORDERED: BISACODYL 5 MG TAB PO PRN (04:25)
[2024-04-28] MEDS ORDERED: TEMAZEPAM 15 MG CAP PO PRN (04:25)
[2024-04-28] MEDS ORDERED: Meclizine Hydrochloride 12.5 MG TAB PO PRN (05:15)
[2024-04-28] MEDS ORDERED: SINGULAIR10 M1 PO (05:34)
[2024-04-28] MEDS ORDERED: PROTONIX20 MG PO (05:34)
[2024-04-28] MEDS ORDERED: FLONASE ALLERG9.9 ML NAS (05:35)
[2024-04-28] MEDS ORDERED: MELOXICAM15 MG PO (05:36)
[2024-04-28] MEDS ORDERED: TRAMADOL HCL50 MG PO (05:38)
[2024-04-28] MEDS ORDERED: TOLTERODINE TART4 M1 PO (05:39)
[2024-04-28] MEDS ORDERED: Levothyroxine Sodium 88 MCG TAB PO SCH (06:00)
[2024-04-28] MEDS ORDERED: Levothyroxine Sodium 75 MCG TAB PO SCH (07:00)
[2024-04-28] MEDS ORDERED: Oxybutynin Chloride 5 MG TAB PO SCH (08:00)
[2024-04-28] MEDS ORDERED: FLUTICASONE PROPIONATE Nasal 16 Gm spray NAS SCH (10:00)
[2024-04-28] MEDS ORDERED: ATENOLOL 50 MG TAB PO SCH (10:00)
[2024-04-28] MEDS ORDERED: Meloxicam 15 MG TAB PO SCH (10:00)
[2024-04-28] MEDS ORDERED: HYDROCHLOROTHIAZIDE 12.5 MG CAP PO SCH (10:00)
[2024-04-28] MEDS ORDERED: Montelukast Sodium 10 MG TAB PO SCH (10:00)
[2024-04-28] MEDS ORDERED: LISINOPRIL 10 MG TAB PO SCH (10:00)
[2024-04-28] MEDS ORDERED: ASPIRIN ENTERIC COATED 81 MG TAB PO SCH (10:00)
[2024-04-28] MEDS ORDERED: Enoxaparin Sodium 40 MG/0.4 ML SYR SC SCH (10:00)
[2024-04-28] MEDS ORDERED: Ciprofloxacin Hydrochloride 500 MG TAB PO SCH (10:00)
[2024-04-28] MEDS ORDERED: CENTRUM SILVER1 EACH PO (10:24)
[2024-04-28] MEDS ORDERED: CHLORTABS4 MG PO (10:25)
[2024-04-28] MEDS ORDERED: ARTIFICIAL TEAR1514 OP (10:26)
[2024-04-28] MEDS ORDERED: SENOKOT8.6 MG PO (10:27)
[2024-04-28] MEDS ORDERED: AIRSUPRA 90-810.7 GM INH (10:28)
[2024-04-28] MEDS ORDERED: IOHEXOL 350 MG/ML 100 ML VIAL IV ONE ×2 (10:45→11:02)
[2024-04-28] MEDS ORDERED: SODIUM CHLORIDE 0.9% 100 ML BAG IV ONE (10:45)
[2024-04-28] MEDS ORDERED: SODIUM CHLORIDE 0.9% 100 ML IV ONE (11:02)
[2024-04-28] MEDS ORDERED: Menthol/Zinc Oxide 4 GM THIN T PRN (11:30)
[2024-04-28] MEDS ORDERED: CHAIR CUSHION DEVICE ONE (12:03)
[2024-04-28 12:27] LABS: ACT PARTIAL THROMBO TIME 29.7 SECONDS (20.0-32.1)
[2024-04-28 12:42] LABS: VITAMIN D, 25-HYDROXY 78.3 ng/mL (30-100)
[2024-04-28 12:44] LABS: FREE T4 1.29 ng/dl (0.89-1.76)
[2024-04-28] MEDS ORDERED: ATORVASTATIN CALCIUM 40 MG TABLET PO SCH (22:00)
[2024-04-28] MEDS ORDERED: Menthol/Zinc Oxide 4 GM THIN T SCH (22:00)
[2024-04-29] VITALS: BP 143/63
[2024-04-29] MEDS ORDERED: diphenhydrAMINE hydrochloride 50 MG/ML VIAL IV ONE (03:50)
[2024-04-29] MEDS ORDERED: Pantoprazole Sodium 20 MG TAB PO SCH (06:00)
[2024-04-29 06:37] LABS: BASO % 0.6 % (0.0-1.0); EOS # 0.2 10*3/uL (0.0-0.4); EOS % 4.6 % (1.0-4.0); HEMATOCRIT 33.2 % (37.0-47.0); MEAN CELL VOLUME 94.1 fl (81.0-99.0); MEAN CORPUSCULAR HGB 32.3 pg (27.0-31.0); MEAN CORPUSCULAR HGB CONC 34.3 g/dl (33.0-37.0); MEAN PLATELET VOLUME 9.8 fl (9.6-12.3); MONO # 0.4 10*3/uL (0.1-1.0); MONO % 8.2 % (3.0-9.0); NEUT # 3.1 10*3/uL (2.3-7.9); NEUT % 65.3 % (47.0-73.0); PLATELET COUNT AUTOMATED 227 10*3/uL (130-400); RED BLOOD COUNT 3.53 10*6/uL (4.10-5.10); RED CELL DISTRI WIDTH 13.9 % (0-14.5); WHITE BLOOD COUNT 4.8 10*3/uL (4.8-10.8)
[2024-04-29 07:12] LABS: ALKALINE PHOSPHATASE 89 U/L (46-116); CHLORIDE 104 mmol/L (98-107); POTASSIUM 3.1 mmol/L (3.4-5.1); SGPT/ALT 19 U/L (5-49); TOTAL PROTEIN 5.7 gm/dL (6.0-8.0)
[2024-04-29 08:00] VITALS: BP 138/68
[2024-04-29 08:32] LABS: BUN 8 mg/dl (9-23)
[2024-04-29] MEDS ORDERED: Ceftriaxone Sodium 1 GM in SYRINGE INFUSION 10 ML IV SCH (10:00)
[2024-04-29 12:00] VITALS: BP 118/51
[2024-04-29] MEDS ORDERED: POTASSIUM CHLORIDE 20 MEQ TAB PO ONE (13:45)
[2024-04-29] MEDS ORDERED: diphenhydrAMINE hydrochloride 25 MG CAP PO SCH (14:00)
[2024-04-29 16:00] VITALS: BP 113/98
[2024-04-29 20:00] VITALS: BP 152/71
[2024-04-30 08:00] VITALS: BP 137/61
[2024-04-30] MEDS ORDERED: POTASSIUM CHLORIDE 20 MEQ TAB PO ONE (08:25)
[2024-04-30 12:00] VITALS: BP 155/75
== END 2024-04-30 13:36 | disposition home health service (06) | DRG 74 ==
LOC: ED 01:17 → EDHOLD 03:47 → 4E 03:47
PROVIDERS: Internal Medicine; ADMIT Internal Medicine; ATTEND Internal Medicine
DX: G90.9 Disorder of the autonomic nervous system, unspecified (principal); N39.0 Urinary tract infection, site not specified; K92.2 Gastrointestinal hemorrhage, unspecified; G44.209 Tension-type headache, unspecified, not intractable; Z66 Do not resuscitate; I10 Essential (primary) hypertension; E03.9 Hypothyroidism, unspecified; K21.9 Gastro-esophageal reflux disease without esophagitis; D64.9 Anemia, unspecified; D64.89 Other specified anemias; R73.9 Hyperglycemia, unspecified; R29.700 NIHSS score 0; T50.995A Adverse effect of other drugs, medicaments and biological substances, initial encounter; Z88.8 Allergy status to other drugs, medicaments and biological substances; Z91.09 Other allergy status, other than to drugs and biological substances; Z79.899 Other long term (current) drug therapy; Z90.711 Acquired absence of uterus with remaining cervical stump; Z80.0 Family history of malignant neoplasm of digestive organs; Z79.01 Long term (current) use of anticoagulants; Z79.2 Long term (current) use of antibiotics; Z82.49 Family history of ischemic heart disease and other diseases of the circulatory system; Y92.89 Other specified places as the place of occurrence of the external cause